=== PATIENT | male | born 1995 | race Caucasian/White ===

== ENCOUNTER 2017-10-14 09:18 | Emergency (ER) | payer MEDICAID ==
[2017-10-14 09:28] VITALS: O2SAT 96
--- NOTE | 2017-10-14 09:37 | EDPHY ---
H & P Stated Complaint: Cough, fever, body aches Time Seen by Provider: 10/14/17 09:37 HPI/ROS: HPI: This is a 22-year-old male who presents with Chief Complaint: Cough, fever, body aches Location: Body Quality: Aches Duration: 2 days Signs and Symptoms: + fever 102 orally F, + chills, + nausea, + nonproductive cough, + dull aching headache, no vomiting, no abdominal pain, no neck stiffness Timing: Gradual onset, worsening Severity: Moderate Context: Patient is homeless, has been at the nursing home for the last 3 days, presents with complaints of gradual onset of body aches and chills with sudden onset of fever today of 102 F orally accompanied by nonproductive cough, dull aching headache, nausea. Patient did not receive influenza vaccine this year. Denies vomiting/diarrhea/abdominal pain. Patient was born premature. + tobacco user. No history of lung disease. Denies hemoptysis/neck stiffness/shortness of breath/cough. Does not take any or any over the counter antipyretics. Modifying Factors: None Comment: ROS: see HPI Constitutional: + fever, + chills, no weight loss Eyes: No blurred vision Respiratory: No shortness of breath, + cough Cardiovascular: No chest pain Gastrointestinal: + nausea, no vomiting, no diarrhea Genitourinary: No dysuria Extremities: No myalgias Neurologic: No weakness, no numbness Skin: No rashes Hematologic: No bruising, no bleeding MEDICAL/SURGICAL/SOCIAL HISTORY: Medical history: Born premature. Generally healthy. Does not take any regular medications. Surgical history: Denies Social history: Homeless CONSTITUTIONAL: Young adult white male, appears ill but nontoxic in appearance , awake and alert, no obvious distress HEENT: Atraumatic and normocephalic, PERRL, EOMI. Tympanic membranes clear. Oropharynx clear, no exudate and moist pink mucosa. Airway patent. No lymphadenopathy. No meningismus. Cardiovascular: Normal S1/S2, mild tachycardia, regular rhythm, without murmur rub or gallop. PULMONARY/CHEST: Symmetrical and nontender. Clear to auscultation bilaterally. Good air movement. No accessory muscle usage. ABDOMEN: Soft, nondistended, nontender, no rebound, no guarding, no peritoneal signs, no masses or organomegaly. No CVAT. EXTREMITIES: 2/2 pulses, strength 5/5, no deformities, no clubbing, no cyanosis or edema. NEUROLOGICAL: no focal neuro deficits. GCS 15. SKIN: Warm and dry, no erythema. no rash. Good capillary refill. Source: Patient Exam Limitations: No limitations - Personal History Current Tetanus/Diphtheria Vaccine: Yes Current Tetanus Diphtheria and Acellular Pertussis (TDAP): Yes Tetanus Vaccine Date: 2010 - Medical/Surgical History Hx Asthma: No Hx Chronic Respiratory Disease: No Hx Diabetes: No Hx Cardiac Disease: No Hx Renal Disease: No Hx Cirrhosis: No Hx Alcoholism: No Hx HIV/AIDS: No Hx Splenectomy or Spleen Trauma: No Other PMH: Premature - Social History Smoking Status: Current every day smoker Constitutional: Initial Vital Signs Temperature (C) 38.2 C 10/14/17 09:18 Heart Rate 119 H 10/14/17 09:18 Respiratory Rate 18 10/14/17 09:18 Blood Pressure 113/74 10/14/17 09:18 O2 Sat (%) 96 10/14/17 09:18 O2 Delivery Mode Room Air Allergies/Adverse Reactions: aspirin Allergy (Verified 10/14/17 09:26) codeine Allergy (Verified 10/14/17 09:26) haloperidol [From Haldol] Allergy (Verified 10/14/17 09:26) lithium Allergy (Verified 10/14/17 09:26) methylphenidate [From Ritalin] Allergy (Verified 10/14/17 09:26) risperidone Allergy (Verified 10/14/17 09:26) sertraline [From Zoloft] Allergy (Verified 10/14/17 09:26) ziprasidone [From Geodon] Allergy (Verified 10/14/17 09:26) Home Medications: Medication Instructions Recorded Benzonatate [Tessalon Pearles (RX)] 100 mg PO Q6 PRN #12 cap 10/14/17 levOFLOXACIN [levAQUIN (*)] 750 mg PO DAILY #7 tab 10/14/17 Medical Decision Making - Diagnostics Imaging Results: Imaging Impressions Chest X-Ray 10/14/17 09:43 Impression: Left lower lobe pneumonia. Findings and recommendations discussed with emergency department physician speech correction assistant, Alicia Esteban PA-C at 1036 hours, October 14, 2017. Final report concurs with initial preliminary interpretation. ED Course/Re-evaluation: Blood culture, labs, IV fluids, IV medications, chest x-ray, influenza test ordered 1 L normal saline, albuterol inhaler and IV Toradol 30 mg upon arrival Influenza A positive. Chest x-ray my read shows left lower lobe opacity, no pneumothorax/effusion. Given IV Levaquin. No signs of hypoxia/wheezing/respiratory distress/sepsis. Appropriate to treat outpatient; prescription for Levaquin and Tessalon Perles and patient given albuterol inhaler to take home. vessel manager consult for medication assistance and primary care follow-up. Patient reports that he can return to the nursing home today and has transportation to the pharmacy tomorrow to fill his prescriptions. This patient was seen under the supervision of my secondary supervising physician. I evaluated care for this patient independently. Discussed this patient with Dr. Blackburn who did not see the patient. Patient's presentation, labs/imaging, treatment and plan of care were discussed with secondary supervising physician. Differential Diagnosis: Differential diagnosis includes but is not limited to pneumonia, upper respiratory infection, bronchitis, sepsis. - Data Points Laboratory Results: Laboratory Results 10/14/17 09:45 10/14/17 09:45 10/14/17 10/14/17 10/14/17 09:45 09:45 09:45 WBC 9.66 10^3/uL H 10^3/uL (3.80-9.50) RBC 5.19 10^6/uL 10^6/uL (4.40-6.38) Hgb 16.1 g/dL g/dL (13.7-17.5) Hct 46.2 % % (40.0-51.0) MCV 89.0 fL fL (81.5-99.8) MCH 31.0 pg pg (27.9-34.1) MCHC 34.8 g/dL g/dL (32.4-36.7) RDW 13.3 % % (11.5-15.2) Plt Count 288 10^3/uL 10^3/uL (150-400) MPV 9.5 fL fL (8.7-11.7) Neut % (Auto) 80.9 % H % (39.3-74.2) Lymph % (Auto) 6.3 % L % (15.0-45.0) [place] % (Auto) 12.3 % % (4.5-13.0) Eos % (Auto) 0.0 % L % (0.6-7.6) Baso % (Auto) 0.2 % L % (0.3-1.7) Nucleat RBC Rel Count 0.0 % % (0.0-0.2) Absolute Neuts (auto) 7.81 10^3/uL H 10^3/uL (1.70-6.50) Absolute Lymphs (auto) 0.61 10^3/uL L 10^3/uL (1.00-3.00) Absolute Monos (auto) 1.19 10^3/uL H 10^3/uL (0.30-0.80) Absolute Eos (auto) 0.00 10^3/uL L 10^3/uL (0.03-0.40) Absolute Basos (auto) 0.02 10^3/uL 10^3/uL (0.02-0.10) Absolute Nucleated RBC 0.00 10^3/uL 10^3/uL (0-0.01) Immature Gran % 0.3 % % (0.0-1.1) Immature Gran # 0.03 10^3/uL 10^3/uL (0.00-0.10) VBG Lactic Acid Sodium 139 mEq/L mEq/L (134-144) Potassium 4.4 mEq/L mEq/L (3.5-5.2) Chloride 102 mEq/L mEq/L (97-110) Carbon Dioxide 23 mEq/l mEq/l (22-31) Anion Gap 14 mEq/L mEq/L (8-16) BUN 13 mg/dL mg/dL (7-23) Creatinine 1.0 mg/dL mg/dL (0.7-1.3) Estimated GFR > 60 Glucose 98 mg/dL mg/dL (70-100) Calcium 9.8 mg/dL mg/dL (8.5-10.4) Nasal Influenza A PCR FLU A DETECTED (NEGATIVE) Nasal Influenza B PCR NEGATIVE FOR FLU B (NEGATIVE) 10/14/17 09:45 WBC RBC Hgb Hct MCV MCH MCHC RDW Plt Count MPV Neut % (Auto) Lymph % (Auto) [place] % (Auto) Eos % (Auto) Baso % (Auto) Nucleat RBC Rel Count Absolute Neuts (auto) Absolute Lymphs (auto) Absolute Monos (auto) Absolute Eos (auto) Absolute Basos (auto) Absolute Nucleated RBC Immature Gran % Immature Gran # VBG Lactic Acid 1.4 mmol/L mmol/L (0.7-2.1) Sodium Potassium Chloride Carbon Dioxide Anion Gap BUN Creatinine Estimated GFR Glucose Calcium Nasal Influenza A PCR Nasal Influenza B PCR Medications Given: Discontinued Medications Sodium Chloride (Ns) 1,000 mls @ 0 mls/hr IV EDNOW ONE; Wide Open PRN Reason: Protocol Stop: 10/14/17 09:43 Last Admin: 10/14/17 09:54 Dose: 1,000 mls Levofloxacin/Dextrose (Levaquin 750 Mg (Premix)) 150 mls @ 100 mls/hr IV EDNOW ONE PRN Reason: Protocol Stop: 10/14/17 12:07 Last Admin: 10/14/17 11:10 Dose: 150 mls Sodium Chloride (Ns) 1,000 mls @ 0 mls/hr IV EDNOW ONE; Wide Open PRN Reason: Protocol Stop: 10/14/17 10:52 Last Admin: 10/14/17 11:11 Dose: 1,000 mls Ketorolac Tromethamine (Toradol) 30 mg IVP EDNOW ONE Stop: 10/14/17 09:44 Last Admin: 10/14/17 09:55 Dose: 30 mg Departure - Departure Disposition: Home, Routine, Self-Care Clinical Impression: Community acquired pneumonia due to influenza A virus Condition: Good Instructions: Albuterol (By breathing), Levofloxacin (By mouth), Influenza (ED) , Community Acquired Pneumonia (ED) Referrals: [facility],. [Clinic] - As per Instructions Prescriptions: Benzonatate [Tessalon Pearles (RX)] 100 mg PO Q6 PRN #12 cap PRN Reason: Cough, Moderate levOFLOXACIN [levAQUIN (*)] 750 mg PO DAILY #7 tab
[2017-10-14] MEDS ORDERED: NS 1,000 ML IV ONE ×2 (09:42→10:51)
[2017-10-14] MEDS ORDERED: KETOROLAC 30 MG/1 ML SDV IVP ONE (09:43)
[2017-10-14 09:53] LABS: PLATELET COUNT 288 10^3/uL (150-400)
[2017-10-14] MEDS ORDERED: ALBUTEROL 60 PUFFS/8 GM MDI IH ONE (10:47)
[2017-10-14 12:10] VITALS: PULSE 103; RESP 16; TEMP 99.7
--- NOTE | 2017-10-14 12:18 | ASMTCMCOM ---
CM Note CM Note Notes: Met with patient regarding homeless resources. Patient is [facility] and is working with a field nurse case manager (Faizan) there. I have confirmed to location for the skilled nursing this evening, provided his prescribed dose of Levaquin through the [facility], and given patient a local bus pass to get back to the skilled nursing. We also discussed prevention of infection spread via face mask and frequent hand washing/sanitation. Date Signed: 10/14/2017 12:18 PM Electronically Signed By:Cristina Benito RN
[2017-10-14 12:37] VITALS: BP 108/55
== END 2017-10-14 13:00 | disposition home or self-care (01) ==
DX: J10.00 Influenza due to other identified influenza virus with unspecified type of pneumonia (principal); F17.200 Nicotine dependence, unspecified, uncomplicated; E86.9 Volume depletion, unspecified
CPT/HCPCS: 96365; J1885; J1956

== ENCOUNTER 2017-10-27 09:52 | Emergency (ER) | payer MEDICAID ==
[2017-10-27 10:08] VITALS: TEMP 98.4
--- NOTE | 2017-10-27 10:13 | EDPHY ---
H & P Stated Complaint: Feels SOB Time Seen by Provider: 10/27/17 10:12 Source: Patient Exam Limitations: No limitations - Personal History Current Tetanus/Diphtheria Vaccine: Yes Current Tetanus Diphtheria and Acellular Pertussis (TDAP): Yes Tetanus Vaccine Date: 2010 - Medical/Surgical History Hx Asthma: No Hx Chronic Respiratory Disease: No Hx Diabetes: No Hx Cardiac Disease: No Hx Renal Disease: No Hx Cirrhosis: No Hx Alcoholism: No Hx HIV/AIDS: No Hx Splenectomy or Spleen Trauma: No Other PMH: Premature - Social History Smoking Status: Current every day smoker Constitutional: Initial Vital Signs Temperature (C) 36.9 C 10/27/17 09:52 Heart Rate 83 10/27/17 09:52 Respiratory Rate 16 10/27/17 09:52 Blood Pressure 117/72 10/27/17 09:52 O2 Sat (%) 99 10/27/17 09:52 O2 Delivery Mode Room Air Allergies/Adverse Reactions: aspirin Allergy (Verified 10/14/17 09:26) codeine Allergy (Verified 10/14/17 09:26) haloperidol [From Haldol] Allergy (Verified 10/14/17 09:26) lithium Allergy (Verified 10/14/17 09:26) methylphenidate [From Ritalin] Allergy (Verified 10/14/17 09:26) risperidone Allergy (Verified 10/14/17 09:26) sertraline [From Zoloft] Allergy (Verified 10/14/17 09:26) ziprasidone [From Geodon] Allergy (Verified 10/14/17 09:26) Home Medications: Medication Instructions Recorded Benzonatate [Tessalon Pearles (RX)] 100 mg PO Q6 PRN #12 cap 10/14/17 levOFLOXACIN [levAQUIN (*)] 750 mg PO DAILY #7 tab 10/14/17 oxyCODONE IR [Oxycodone Ir (*)] 5 - 10 mg PO Q6 PRN #7 tab 10/27/17 predniSONE 40 mg PO DAILY #10 tab 10/27/17 Medical Decision Making ED Course/Re-evaluation: CHIEF COMPLAINT: Lung pain HISTORY OF PRESENT ILLNESS: Homeless 22-year-old who was unkept and on showered. He was here 2-2 and half weeks ago and diagnosed with a bronchitis or early pneumonia. He states the symptoms resolved but he is having constant pain in his lungs. The pain is always there and gets worse when he takes a deep breath. It is not in a specific area but in all of his lungs. He denies fevers or chills. Denies cough. Denies any other symptoms. REVIEW OF SYSTEMS: A 10 point review of systems was performed and is negative with the exception of the elements mentioned in the history of present illness. PHYSICAL EXAM: HR, BP, O2 Sat, RR. Temp noted General Appearance: Alert, well hydrated, appropriate, and non-toxic appearing. Head: Atraumatic without scalp tenderness or obvious injury Eyes: Pupils equal, round, reactive to light and accommodation, EOMI, no trauma , no injection. Ears: Clear bilaterally, no perforation, normal landmarks Nose: Atraumatic, no rhinorrhea, clear. Throat: There is no erythema or exudates, no lesions, normal tonsils, mucus membranes moist. Neck: Supple, 2+ carotid upstroke, nontender, no lymphadenopathy. Respiratory: No retractions, no distress, no wheezes, and no accessory muscle use. Lungs are clear to auscultation bilaterally. Cardiovascular: Regular rate and rhythm, no murmurs, rubs, or gallops. Bilateral carotid, radial, dorsalis pedis, and posterior tibial pulses intact. Good capillary refill all extremities. Gastrointestinal: Abdomen is soft, nontender, non-distended, no masses, no rebound, no guarding, no peritoneal signs. Musculoskeletal: Normal active ROM of all extremities, atraumatic. Neurological: Alert, appropriate, and interactive. The patient has normal DTRs and non-focal cranial nerves, motor, sensory, and cerebellar exam. Skin: No rashes, good turgor, no nodules on palpation. Past medical history: Noncontributory Past surgical history: Noncontributory Family history: Noncontributory Social history: Homeless, abuses street drugs and alcohol, single DIAGNOSTICS/PROCEDURES/CRITICAL CARE TIME: Study: PA and Lateral Chest X-ray shows bronchitis. Indication: Chest pain Results: After viewing the images myself on the PACS system. My interpretation of the images is: no acute process. The radiologist interpretation is pending at the time of this dictation. I have discussed the above x-rays with the radiologist. DIFFERENTIAL DIAGNOSIS: Includes not limited to: Pneumonitis, recurrent pneumonia, bronchitis, malingering, drug-seeking MEDICAL DECISION MAKING: This patient has no specific findings on clinical exam. Chest x-ray is pending. I will give this patient 60 of prednisone in case he has some post infectious reactive airways disease type of pain. Additionally, he will get a duo nebulizer treatment while we are waiting for the x-ray. Chest x-ray shows bronchitis, I will discharge the patient home with steroids to treat acute bronchitis. I have discussed these findings with the patient. He agrees with the plan and will be discharged home. - Data Points Medications Given: Discontinued Medications Albuterol/Ipratropium (Duoneb) 3 ml IH EDNOW ONE Stop: 10/27/17 10:48 Last Admin: 10/27/17 10:51 Dose: 3 ml Prednisone (Prednisone) 60 mg PO EDNOW ONE Stop: 10/27/17 10:48 Last Admin: 10/27/17 10:51 Dose: 60 mg Departure - Departure Disposition: Home, Routine, Self-Care Clinical Impression: Acute bronchitis Qualifiers: Bronchitis organism: unspecified organism Qualified Code(s): J20.9 - Acute bronchitis, unspecified Condition: Good Instructions: Acute Bronchitis (ED), Bronchospasm (ED) Additional Instructions: Take full course of Prednisone as directed. Take Oxycodone as directed for severe pain. You have been referred to [facility], follow up as needed. [facility] has walk-in appointments for the homeless at the following days/locations. No appointment is needed. Saturday 8-10 am @ [facility] 11 AM-1 PM @ [facility] Saturday 8-10:30 AM @ [facility] Saturday 8-10 AM @ [facility] 2-4 PM @ [facility] Saturday 8-10 AM @ [facility] Referrals: [facility],. [Clinic] - As per Instructions Prescriptions: oxyCODONE IR [Oxycodone Ir (*)] 5 - 10 mg PO Q6 PRN #7 tab PRN Reason: Pain, Severe predniSONE 40 mg PO DAILY #10 tab Report Scribed for: Pierre aRmos Report Scribed by: Katheryn Jim Date of Report: 10/27/17 Time of Report: 11:30
[2017-10-27] MEDS ORDERED: IPRATROPIUM/ALBUTEROL 3 ML DEYVIAL IH ONE (10:47)
[2017-10-27] MEDS ORDERED: predniSONE 20 MG TAB PO ONE (10:47)
[2017-10-27 11:03] VITALS: BP 108/65; PULSE 68; RESP 18; O2SAT 98
--- NOTE | 2017-10-27 12:17 | ASDISCHSUM ---
Discharge Information Plan Status:Homeless/[facility] Medically Cleared to Leave: Discharge Date:10/27/2017 11:33 AM CM D/C Disposition:[facility] (Homeless) ADT D/C Disposition:Home, Routine, Self-Care Projected Discharge Date:10/27/2017 11:33 AM Transportation at D/C:None or Unknown Discharge Delay Reason: Follow-Up Date:10/27/2017 11:33 AM Discharge Slot: Final Diagnosis: Placement Information Patient Contact Information Contact Name:MICA Relationship: Address: Home Phone: Work Phone: City: Alternate Phone: State/Zip Code: Email: Financial Information Financial Class: Primary Plan Desc:MEDICA[employer] [place] Primary Plan Number:[id number] Secondary Plan Desc: Secondary Plan Number: Assessment Information [facility] Progress Note CM Note CM Note Notes: Patient presented to the ED via EMS for pain related to coughing. Patient recently seen in the ED 10/14/17 and was diagnosed with pneumonia; pt states he took the provided medication from that visit but that he continues to have pain while coughing. Patient also mentioned he would like treatment for his body lice (pt unable to afford OTC lice medication). This CM planned on providing patient with prescription for Nix Permethrin 1% so he could get it filled and covered by his Medicaid; however, patient left before could provide this and additional [facility] info, and he also refused to sign his DC paperwork. Patient is currently staying at [facility] and has a leather case finisher, Faizan, through [facility]. Date Signed: 10/27/2017 12:16 PM Electronically Signed By:Mandy Dougherty RN LACE LACE Acuity / Level of Care Answers: No. Emergency dept visits in Answers: 2 last 6 months Score: 2 Date Signed: 10/27/2017 12:16 PM Electronically Signed By:Mandy Dougherty RN Intervention Information
== END 2017-10-27 11:33 | disposition home or self-care (01) ==
LOC: EDUNIT#
DX: J20.9 Acute bronchitis, unspecified (principal); F17.200 Nicotine dependence, unspecified, uncomplicated
CPT/HCPCS: J7512

== ENCOUNTER 2017-11-02 08:24 | Inpatient (IN) | payer MEDICAID ==
[2017-11-02] MEDS ORDERED: NS 1,000 ML IV ONE (08:28)
[2017-11-02 08:48] LABS: PLATELET COUNT 384 10^3/uL (150-400)
--- NOTE | 2017-11-02 08:58 | EDPHY ---
H & P Stated Complaint: coughing HPI/ROS: Chief complaint: Cold symptoms History of present illness: This is a 22-year-old male, currently homeless staying in a homeless long-term, who is brought to the emergency department by EMS for cold symptoms. He reports productive cough and trouble breathing. He states he has been sick throughout October. He was diagnosed with pneumonia and then Influenza A October. His pneumonia was treated with Levaquin on an outpatient basis. He states he feels like he has never fully recovered. He feels symptoms are worsening. He is constantly surrounded by other sick people. EMS provided him with a DuoNeb and 125 mg of Solu-Medrol. Review of systems: 10 point review of systems was obtained and other than described above was negative - Personal History Current Tetanus/Diphtheria Vaccine: Yes Current Tetanus Diphtheria and Acellular Pertussis (TDAP): Yes Tetanus Vaccine Date: 2010 - Medical/Surgical History Hx Asthma: No Hx Chronic Respiratory Disease: No Hx Diabetes: No Hx Cardiac Disease: No Hx Renal Disease: No Hx Cirrhosis: No Hx Alcoholism: No Hx HIV/AIDS: No Hx Splenectomy or Spleen Trauma: No Other PMH: Premature - Social History Smoking Status: Current every day smoker - Physical Exam Exam: General Appearance: Alert, nontoxic. Eyes: Pupils equal and round no pallor or injection. ENT, Mouth: Mucous membranes moist. Respiratory: Patient is talking in full sentences. No use of accessory muscles diffuse rhonchi. Rales in the right lower lung aviles noted. Cardiovascular: Regular rate and rhythm. Gastrointestinal: Abdomen is soft and non tender, no masses, bowel sounds normal. Neurological: Alert and oriented x4. Strength and sensation intact and symmetrical. No meningismus. Skin: Warm and dry, no rashes. Musculoskeletal: Neck is supple non tender. Extremities are symmetrical, full range of motion. Psychiatric: Patient is oriented X 3, there is no agitation. Constitutional: Initial Vital Signs Temperature (C) 36.8 C 11/02/17 08:27 Heart Rate 110 H 11/02/17 08:27 Respiratory Rate 20 11/02/17 08:27 Blood Pressure 116/76 11/02/17 08:27 O2 Sat (%) 92 11/02/17 08:27 O2 Delivery Mode Room Air Allergies/Adverse Reactions: aspirin Allergy (Verified 10/14/17 09:26) codeine Allergy (Verified 10/14/17 09:26) haloperidol [From Haldol] Allergy (Verified 10/14/17 09:26) lithium Allergy (Verified 10/14/17 09:26) methylphenidate [From Ritalin] Allergy (Verified 10/14/17 09:26) risperidone Allergy (Verified 10/14/17 09:26) sertraline [From Zoloft] Allergy (Verified 10/14/17 09:26) ziprasidone [From Geodon] Allergy (Verified 10/14/17 09:26) Home Medications: Medication Instructions Recorded Benzonatate [Tessalon Pearles (RX)] 100 mg PO Q6 PRN #12 cap 10/14/17 levOFLOXACIN [levAQUIN (*)] 750 mg PO DAILY #7 tab 10/14/17 oxyCODONE IR [Oxycodone Ir (*)] 5 - 10 mg PO Q6 PRN #7 tab 10/27/17 predniSONE 40 mg PO DAILY #10 tab 10/27/17 Medical Decision Making - Diagnostics Imaging Results: Imaging Impressions Chest X-Ray 11/02/17 08:28 Impression: 1. Findings consistent with airways disease are noted. Bilateral interstitial prominence may reflect viral pneumonitis. 2. Left basilar opacity, atelectasis versus pneumonia. Results called and discussed with BARRY Dawkins on 11/02/2017 at 9:36 Imaging: I viewed and interpreted images myself ED Course/Re-evaluation: Patient is discussed with my secondary supervising physician Dr. Geovani Blackburn. Patient presents for cold symptoms. He has had a episode of pneumonia treated with Levaquin as well as influenza A this month. I am concerned for a new pulmonary infection, virus versus possible left lower lobe pneumonia. Increasing white count from previous studies. He does not appear to be recovering well. He is not in a situation to recover well as he is homeless. I believe he warrants admission for further care. He is nontoxic. I will defer antibiotic therapy to the hospitalist service. The plan has been discussed with the patient who voiced understanding and agreement with it. Differential Diagnosis: Included but not limited to pneumonia, bronchitis, viral syndrome - Data Points Laboratory Results: Laboratory Results 11/02/17 08:33 11/02/17 08:33 11/02/17 11/02/17 11/02/17 09:00 08:33 08:33 WBC RBC Hgb Hct MCV MCH MCHC RDW Plt Count MPV Neut % (Auto) Lymph % (Auto) [place] % (Auto) Eos % (Auto) Baso % (Auto) Nucleat RBC Rel Count Absolute Neuts (auto) Absolute Lymphs (auto) Absolute Monos (auto) Absolute Eos (auto) Absolute Basos (auto) Absolute Nucleated RBC Immature Gran % Immature Gran # PT 13.9 SEC SEC (12.0-15.0) INR 1.05 (0.83-1.16) APTT 31.1 SEC SEC (23.0-38.0) VBG Lactic Acid 1.2 mmol/L mmol/L (0.7-2.1) Sodium 135 mEq/L mEq/L (135-145) Potassium 4.2 mEq/L mEq/L (3.5-5.2) Chloride 95 mEq/L L mEq/L (97-110) Carbon Dioxide 23 mEq/l mEq/l (22-31) Anion Gap 17 mEq/L H mEq/L (8-16) BUN 10 mg/dL mg/dL (7-23) Creatinine 0.8 mg/dL mg/dL (0.7-1.3) Estimated GFR > 60 Glucose 87 mg/dL mg/dL (70-100) Calcium 9.0 mg/dL mg/dL (8.5-10.4) Total Bilirubin 1.3 mg/dL mg/dL (0.1-1.4) 11/02/17 08:33 WBC 16.42 10^3/uL H 10^3/uL (3.80-9.50) RBC 4.71 10^6/uL 10^6/uL (4.40-6.38) Hgb 15.0 g/dL g/dL (13.7-17.5) Hct 40.7 % % (40.0-51.0) MCV 86.4 fL fL (81.5-99.8) MCH 31.8 pg pg (27.9-34.1) MCHC 36.9 g/dL H g/dL (32.4-36.7) RDW 12.7 % % (11.5-15.2) Plt Count 384 10^3/uL 10^3/uL (150-400) MPV 9.8 fL fL (8.7-11.7) Neut % (Auto) 71.7 % % (39.3-74.2) Lymph % (Auto) 11.2 % L % (15.0-45.0) [place] % (Auto) 15.6 % H % (4.5-13.0) Eos % (Auto) 0.1 % L % (0.6-7.6) Baso % (Auto) 0.2 % L % (0.3-1.7) Nucleat RBC Rel Count 0.0 % % (0.0-0.2) Absolute Neuts (auto) 11.76 10^3/uL H 10^3/uL (1.70-6.50) Absolute Lymphs (auto) 1.84 10^3/uL 10^3/uL (1.00-3.00) Absolute Monos (auto) 2.56 10^3/uL H 10^3/uL (0.30-0.80) Absolute Eos (auto) 0.02 10^3/uL L 10^3/uL (0.03-0.40) Absolute Basos (auto) 0.04 10^3/uL 10^3/uL (0.02-0.10) Absolute Nucleated RBC 0.00 10^3/uL 10^3/uL (0-0.01) Immature Gran % 1.2 % H % (0.0-1.1) Immature Gran # 0.20 10^3/uL H 10^3/uL (0.00-0.10) PT INR APTT VBG Lactic Acid Sodium Potassium Chloride Carbon Dioxide Anion Gap BUN Creatinine Estimated GFR Glucose Calcium Total Bilirubin Medications Given: Discontinued Medications Sodium Chloride (Ns) 1,000 mls @ 0 mls/hr IV ONCE ONE; Wide Open PRN Reason: Protocol Stop: 11/02/17 08:29 Last Admin: 11/02/17 08:47 Dose: 1,000 mls Departure - Departure Disposition: [facility] Acute Clinical Impression: Acute bronchitis Qualifiers: Bronchitis organism: unspecified organism Qualified Code(s): J20.9 - Acute bronchitis, unspecified Condition: Good
[2017-11-02 09:07] LABS: INR 1.05 (0.83-1.16); PROTIME(PATIENT) 13.9 SEC (12.0-15.0)
[2017-11-02] MEDS ORDERED: BENZONATATE 100 MG CAP PO PRN (11:56)
[2017-11-02] MEDS ORDERED: ONDANSETRON DISINTEGRATING 4 MG TAB PO PRN (11:57)
[2017-11-02] MEDS ORDERED: ONDANSETRON 4 MG/2 ML VIAL IVP PRN (11:57)
[2017-11-02] MEDS ORDERED: ACETAMINOPHEN 325 MG TAB PO PRN (11:57)
[2017-11-02] MEDS ORDERED: PERMETHRIN 5% 60 GM CREAM TP ONE ×2 (11:59→21:00)
[2017-11-02] MEDS ORDERED: NS W/ 20 KCl/L 1,000 ML IV SCH (12:00)
[2017-11-02] MEDS ORDERED: oxyCODONE IR 5 MG TAB PO PRN (12:03)
--- NOTE | 2017-11-02 12:13 | PDGENHP ---
History and Physical - Chief Complaint cough - History of Present Illness 22 yo homeless male admitted from the [facility] with concerns of pneumonia. Was seen in early October and treated with 7 days course of levaquin. Was seen on Oct 27 and continued to have symptoms and was given steroids that he was not able to fill. He says he really is about the same since early October. He has had tactile fever. He has a cough. He feels sick. BP is ok on RA no tachycardia no increased work of breathing pmhx: asthma tobacco abuse pshx: none soc: tobacco use, homeless fmhx: nc meds: none currently History Information - Allergies/Home Medication List Allergies/Adverse Reactions: aspirin Allergy (Verified 10/14/17 09:26) codeine Allergy (Verified 10/14/17 09:26) haloperidol [From Haldol] Allergy (Verified 10/14/17 09:26) lithium Allergy (Verified 10/14/17 09:26) methylphenidate [From Ritalin] Allergy (Verified 10/14/17 09:26) risperidone Allergy (Verified 10/14/17 09:26) sertraline [From Zoloft] Allergy (Verified 10/14/17 09:26) ziprasidone [From Geodon] Allergy (Verified 10/14/17 09:26) I have personally reviewed and updated: medical history, social history - Social History Smoking Status: Current every day smoker Review of Systems Review of Systems: ROS: 10pt was reviewed & negative except for what was stated in HPI & below Physical Exam Physical Exam: Temp Pulse Resp BP Pulse Ox 36.8 C 93 20 121/70 H 92 11/02/17 11:23 11/02/17 11:23 11/02/17 11:23 11/02/17 11:23 11/02/17 11:23 Constitutional: no apparent distress Eyes: PERRL, EOMI Ears, Nose, Mouth, Throat: moist mucous membranes Cardiovascular: regular rate and rhythym, No edema Respiratory: expiratory wheeze, other (coarse) Gastrointestinal: normoactive bowel sounds, soft, non-tender abdomen Skin: warm Musculoskeletal: full muscle strength Neurologic: AAOx3 Psychiatric: interacting appropriately, not anxious, not encephalopathic Lymph, Heme, Immunologic: No petechiae Lab Data & Imaging Review 11/02/17 08:33 11/02/17 08:33 WBC 16.42 10^3/uL (3.80-9.50) H 11/02/17 08:33 RBC 4.71 10^6/uL (4.40-6.38) 11/02/17 08:33 Hgb 15.0 g/dL (13.7-17.5) 11/02/17 08:33 Hct 40.7 % (40.0-51.0) 11/02/17 08:33 MCV 86.4 fL (81.5-99.8) 11/02/17 08:33 MCH 31.8 pg (27.9-34.1) 11/02/17 08:33 MCHC 36.9 g/dL (32.4-36.7) H 11/02/17 08:33 RDW 12.7 % (11.5-15.2) 11/02/17 08:33 Plt Count 384 10^3/uL (150-400) 11/02/17 08:33 MPV 9.8 fL (8.7-11.7) 11/02/17 08:33 Neut % (Auto) 71.7 % (39.3-74.2) 11/02/17 08:33 Lymph % (Auto) 11.2 % (15.0-45.0) L 11/02/17 08:33 [place] % (Auto) 15.6 % (4.5-13.0) H 11/02/17 08:33 Eos % (Auto) 0.1 % (0.6-7.6) L 11/02/17 08:33 Baso % (Auto) 0.2 % (0.3-1.7) L 11/02/17 08:33 Nucleat RBC Rel Count 0.0 % (0.0-0.2) 11/02/17 08:33 Absolute Neuts (auto) 11.76 10^3/uL (1.70-6.50) H 11/02/17 08:33 Absolute Lymphs (auto) 1.84 10^3/uL (1.00-3.00) 11/02/17 08:33 Absolute Monos (auto) 2.56 10^3/uL (0.30-0.80) H 11/02/17 08:33 Absolute Eos (auto) 0.02 10^3/uL (0.03-0.40) L 11/02/17 08:33 Absolute Basos (auto) 0.04 10^3/uL (0.02-0.10) 11/02/17 08:33 Absolute Nucleated RBC 0.00 10^3/uL (0-0.01) 11/02/17 08:33 Immature Gran % 1.2 % (0.0-1.1) H 11/02/17 08:33 Immature Gran # 0.20 10^3/uL (0.00-0.10) H 11/02/17 08:33 PT 13.9 SEC (12.0-15.0) 11/02/17 08:33 INR 1.05 (0.83-1.16) 11/02/17 08:33 APTT 31.1 SEC (23.0-38.0) 11/02/17 08:33 VBG Lactic Acid 1.2 mmol/L (0.7-2.1) 11/02/17 09:00 Sodium 135 mEq/L (135-145) 11/02/17 08:33 Potassium 4.2 mEq/L (3.5-5.2) 11/02/17 08:33 Chloride 95 mEq/L (97-110) L 11/02/17 08:33 Carbon Dioxide 23 mEq/l (22-31) 11/02/17 08:33 Anion Gap 17 mEq/L (8-16) H 11/02/17 08:33 BUN 10 mg/dL (7-23) 11/02/17 08:33 Creatinine 0.8 mg/dL (0.7-1.3) 11/02/17 08:33 Estimated GFR > 60 11/02/17 08:33 Glucose 87 mg/dL (70-100) 11/02/17 08:33 Calcium 9.0 mg/dL (8.5-10.4) 11/02/17 08:33 Total Bilirubin 1.3 mg/dL (0.1-1.4) 11/02/17 08:33 Assessment & Plan Assessment: CXR: bilateral pneumonia Leukocytosis bmp ok #CAP #Acute bronchitis #Lice Plan: Observation Rocephin, Azithromycin scheduled nebs steroids Permethrin early ambulation full code
[2017-11-02] MEDS: ALBUTEROL 3 ML DEYVIAL IH SCH ×3 (12:35→21:50)
[2017-11-02] MEDS: guaiFENesin 600 MG TAB.ER PO SCH ×2 (12:57→21:23)
[2017-11-02] MEDS: AZITHROMYCIN IV 500 MG in D5W 250 ML IV SCH (13:32)
[2017-11-02] MEDS: cefTRIAXone 1 GM in STERILE WATER INJ 10 ML IV SCH (13:32)
[2017-11-02] MEDS: predniSONE 20 MG TAB PO SCH (13:33)
[2017-11-03 05:08] LABS: PLATELET COUNT 386 10^3/uL (150-400)
[2017-11-03] MEDS: ALBUTEROL 3 ML DEYVIAL IH SCH ×4 (06:16→22:11)
[2017-11-03] MEDS: AZITHROMYCIN IV 500 MG in D5W 250 ML IV SCH (10:56)
[2017-11-03] MEDS: cefTRIAXone 1 GM in STERILE WATER INJ 10 ML IV SCH (10:57)
[2017-11-03] MEDS: predniSONE 20 MG TAB PO SCH (10:57)
[2017-11-03] MEDS: guaiFENesin 600 MG TAB.ER PO SCH ×2 (10:58→21:02)
--- NOTE | 2017-11-03 15:12 | HOSPPROG ---
Hospitalist Progress Note Assessment/Plan: #CAP #Acute bronchitis #Lice Plan: change to inpatient Rocephin, Azithromycin scheduled nebs cont steroids Permethrin early ambulation full code expect discharge tomorrow Subjective: still with leukocytosis. Afebrile. On RA. feels better. Lots of coughing. Still feels weak, not back to baseline. Feels unsafe for discharge. Objective: Vital Signs Temp Pulse Resp BP Pulse Ox 36.7 C 76 20 123/77 H 96 11/03/17 08:00 11/03/17 08:00 11/03/17 08:00 11/03/17 08:00 11/03/17 08:00 Microbiology 11/02/17 11:05 Respiratory Panel (PCR) - Final Nasal, Sinus - [place] Viral Transport No Organism Detected Laboratory Results 11/03/17 04:29 11/02/17 11/03/17 11/04/17 05:59 05:59 05:59 Intake Total 2455 Balance 2455 PT 13.9 SEC (12.0-15.0) 11/02/17 08:33 INR 1.05 (0.83-1.16) 11/02/17 08:33 - Physical Exam Constitutional: no apparent distress Eyes: PERRL Ears, Nose, Mouth, Throat: moist mucous membranes, hearing normal Cardiovascular: regular rate and rhythym, No edema Respiratory: expiratory wheeze, other (coars) Gastrointestinal: normoactive bowel sounds, soft, non-tender abdomen Skin: warm Musculoskeletal: full muscle strength Neurologic: AAOx3 Psychiatric: interacting appropriately, not anxious, not encephalopathic Lymph, Heme, Immunologic: No petechiae ICD10 Worksheet Patient Problems: Problems Problem Status Onset Acute bronchitis Acute
--- NOTE | 2017-11-03 15:33 | PDMN ---
Medical Necessity Medical necessity: C/M review: est. > 2 MN LOS for eval and TX of acute and persistent community acquired pneumonia, bronchitis, lice requiring topical Permethrin, ongoing IV Azithramycin, IV Ceftriaxone, IV fluids, scheduled Albuterol nebs, oral steroids, comorbid homelessness, tobacco use, history of asthma per 11/03/2017 Hospitalist progress note.
--- NOTE | 2017-11-03 15:36 | ASMTCMCOM ---
CM Note CM Note Notes: Met with patient after chart review and discussion with Dr. Masters. 22 year old homeless male with community acquired pneumonia He is tearful and tells me he has been homeless for 8 years. He has been in [place] since May. He tells me he is dialed into resources but needs help. He states he doesn't understand how to do things he should know how to do. He tells me he is connected with a place to get his GED. He is not interested in [facility] as they have a "tough" homeless community. 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 They only offer him a floor to sleep on. He admits to daily smoking of both tobacco and cannabis. He a a cell phone and is trying to reach out to places where he may stay as he is sure he will just get sick again if he is dcd' to the streets.. When I ask him if he is [facility] he smiles and states "yeah they know of me". He asks me to find him financial help to secure an apartment. [facility] the [facility]. He states he has a friend who is the mother of 2 and homeless as well. He also tells me the [employer] students don't see him. He admits he has anxiety and had a terrible childhood. I informed him that resources for housing down payment not likely and that he needs to follow up with [facility]. CM to follow. Likely dc tomorrow and will need appointment set up and possibly a bus pass and medications. Date Signed: 11/03/2017 03:36 PM Electronically Signed By:Luciana Osman RN
[2017-11-04 05:32] LABS: PLATELET COUNT 395 10^3/uL (150-400)
[2017-11-04] MEDS: ALBUTEROL 3 ML DEYVIAL IH SCH ×4 (06:00→19:37)
[2017-11-04] MEDS: cefTRIAXone 1 GM in STERILE WATER INJ 10 ML IV SCH (09:12)
[2017-11-04] MEDS: predniSONE 20 MG TAB PO SCH (09:17)
[2017-11-04] MEDS: guaiFENesin 600 MG TAB.ER PO SCH ×2 (09:17→21:00)
[2017-11-04] MEDS: AZITHROMYCIN IV 500 MG in D5W 250 ML IV SCH (09:18)
[2017-11-04] MEDS: AZITHROMYCIN 250 MG TAB PO SCH (10:58)
--- NOTE | 2017-11-04 11:00 | PDDCSUM ---
Discharge Summary Discharge Summary: DISCHARGE DIAGNOSES: -ongoing symptoms of Pneumonia requiring readmission suspect viral pneumonia with significant bronchitic component -scabies -[facility] HOSPITAL COURSE SUMMARY: This patient had onset of cough fevers and shortness of breath in early October. He has been symptomatic since then though his symptoms are very gradually improving. He has been to our ER twice previously with no improvement and is admitted at this time and treated with antibiotic along with steroids. Chest x-rays have consistently showed a mild diffuse interstitial component suggesting possibility of viral pneumonia though respiratory pathogen panel did not show a specific virus. Blood cultures have not shown any growth. There are no areas of consolidation typical of a bacterial pneumonia. He did have a low-grade fever on October 14 but has had no fevers since then that we have measured. There been no other complications of this illness. At present he is stable for discharge from the hospital. There is no fever. He is not hypoxemic and showing no signs of dyspnea or respiratory failure. He does have a cough which is productive. He is up ambulating with ease, eating well, and there are no signs of other complications. There is no wheezing on lung exam. It is felt to most likely has a viral pneumonitis, however as he has continuing symptoms and no specific findings to determine atypical bacterial versus viral pneumonia, will be treated with ongoing course of antibiotic along with steroid for his symptoms. The patient did have scabies at the time of this admission and was treated with permethrin and this appears to have been successful. PENDING TEST RESULTS: None MEDICATION CHANGES: He is prescribed 1 week of Keflex, 2 more days of azithromycin, the 5 days of prednisone 20 mg FOLLOW-UP PLAN: At [facility] in 1 week Greater than 35 minutes bedside and care coordination time today
--- NOTE | 2017-11-04 15:40 | ASMTCMCOM ---
CM Note CM Note Notes: Spoke with Dr. Jimenez about patient and the need for him to be 100% clear of lice to access any placement for him. We also discussed patient's medications and filling them here so he doesn't go without steroids or any other medicine he needs to make a full recovery. Awaiting Dr. Jimenez's instruction to finish D/C arrangements for patient. CM will follow. Date Signed: 11/04/2017 03:40 PM Electronically Signed By:Kelley Gil LCSW
--- NOTE | 2017-11-04 20:33 | HOSPPROG ---
Hospitalist Progress Note Assessment/Plan: DIAGNOSES: #CAP #Acute bronchitis #Lice #homelessness PLANS: -at this point will continue on his antibiotics and steroid -at this point we are unable to send him back to pen[facility] until we are certain the lipase are completely controlled; will review with Infectious Disease SUBJECTIVE: Patient at this point still having significant cough and feels somewhat weak and tired Less short of breath Complain to me of burning in his IV from his IV azithromycin which persisted after decreasing the dose OBJECTIVE Vitals reviewed: Stable without fever Quantitative Analyst, my review: Exam: alert oriented skin warm dry color ok resps not labored lungs clear BSs heart regular abd soft nondistended nontender, bowel sounds present limbs warm, no edema iv site ok Lab data: White blood cell count has decreased despite the significant steroid dose Objective: Vital Signs Temp Pulse Resp BP Pulse Ox 36.9 C 72 12 130/93 H 95 11/04/17 16:00 11/04/17 16:00 11/04/17 16:00 11/04/17 16:00 11/04/17 16:00 Laboratory Results 11/04/17 04:53 11/03/17 11/04/17 11/05/17 06:59 06:59 06:59 Intake Total 1480 480 Balance 1480 480 PT 13.9 SEC (12.0-15.0) 11/02/17 08:33 INR 1.05 (0.83-1.16) 11/02/17 08:33 ICD10 Worksheet Patient Problems: Problems Problem Status Onset Acute bronchitis Acute
[2017-11-04 22:59] VITALS: BP 117/68; PULSE 65; RESP 16; TEMP 98.5; O2SAT 96
[2017-11-05] MEDS: ALBUTEROL 3 ML DEYVIAL IH SCH (05:04)
[2017-11-05] MEDS ORDERED: ALBUTEROL 60 PUFFS/8 GM MDI IH PRN (08:32)
[2017-11-05] MEDS: predniSONE 20 MG TAB PO SCH (08:57)
[2017-11-05] MEDS: AZITHROMYCIN 250 MG TAB PO SCH (08:57)
[2017-11-05] MEDS: cefTRIAXone 1 GM in STERILE WATER INJ 10 ML IV SCH (08:57)
[2017-11-05] MEDS: guaiFENesin 600 MG TAB.ER PO SCH (08:57)
--- NOTE | 2017-11-05 12:07 | ASDISCHSUM ---
Discharge Information Plan Status:Home with No Needs Medically Cleared to Leave:11/04/2017 Discharge Date:11/05/2017 10:47 AM CM D/C Disposition: ADT D/C Disposition:Home, Routine, Self-Care Projected Discharge Date:11/05/2017 12:00 AM Transportation at D/C: Discharge Delay Reason: Follow-Up Date:11/05/2017 12:00 AM Discharge Slot: Final Diagnosis: Placement Information Patient Contact Information Contact Name:MICA Relationship: Address: Home Phone: Work Phone: City: Alternate Phone: State/[place] Code: Email: Financial Information Financial Class: Primary Plan Desc:[employer] [place] Primary Plan Number:[id number] Secondary Plan Desc: Secondary Plan Number: Assessment Information [facility] Progress Note CM Note CM Note Notes: Met with patient after chart review and discussion with Dr. Masters. 22 year old homeless male with community acquired pneumonia He is tearful and tells me he has been homeless for 8 years. He has been in [place] since May. He tells me he is dialed into resources but needs help. He states he doesn't understand how to do things he should know how to do. He tells me he is connected with a place to get his GED. He is not interested in [facility] as they have a "tough" homeless community. 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 They only offer him a floor to sleep on. He admits to daily smoking of both tobacco and cannabis. He a a cell phone and is trying to reach out to places where he may stay as he is sure he will just get sick again if he is dcd' to the streets.. When I ask him if he is [facility] he smiles and states "yeah they know of me". He asks me to find him financial help to secure an apartment. He is on the [facility]. He states he has a friend who is the mother of 2 and homeless as well. He also tells me the [employer] students don't see him. He admits he has anxiety and had a terrible childhood. I informed him that resources for housing down payment not likely and that he needs to follow up with [facility]. CM to follow. Likely dc tomorrow and will need appointment set up and possibly a bus pass and medications. Date Signed: 11/03/2017 03:36 PM Electronically Signed By:Luciana Osman RN [facility] CM Progress Note CM Note CM Note Notes: Spoke with Dr. Jimenez about patient and the need for him to be 100% clear of lice to access any placement for him. We also discussed patient's medications and filling them here so he doesn't go without steroids or any other medicine he needs to make a full recovery. Awaiting Dr. Jimenez's instruction to finish D/C arrangements for patient. CM will follow. Date Signed: 11/04/2017 03:40 PM Electronically Signed By:Kelley Gil LCSW Case Management Discharge Plan Note Case Management Discharge Discharge Order Complete? Answers: Yes Patient to Obtain Answers: Other Notes: MAP by hospital Medications Transportation Arranged Answers: Other Notes: Provided bus pass [facility] Complete Answers: No Case Management Transport Answers: No Form Complete Faxed Final Orders Answers: No Agency/Facility Transfer Answers: No Report Printed & Faxed to Receiving Agency Family Notified Answers: No Discharge Comments Notes: Pt is being discharged today. provided pt w/ a bus pass. [facility] also MAP pts prescriptions. Pt will return back to [facility]. CM available for changes. Plan: Independent Date Signed: 11/05/2017 10:09 AM Electronically Signed By:YONY Sarmiento Intervention Information
--- NOTE | 2017-11-05 19:50 | PDDCSUM ---
Discharge Summary Discharge Summary: DISCHARGE DIAGNOSES: -ongoing symptoms of Pneumonia requiring readmission suspect viral pneumonia with significant bronchitic component -scabies -[facility] HOSPITAL COURSE SUMMARY: This patient had onset of cough fevers and shortness of breath in early October. He has been symptomatic since then though his symptoms are very gradually improving. He has been to our ER twice previously with no improvement and is admitted at this time and treated with antibiotic along with steroids. Chest x-rays have consistently showed a mild diffuse interstitial component suggesting possibility of viral pneumonia though respiratory pathogen panel did not show a specific virus. Blood cultures have not shown any growth. There are no areas of consolidation typical of a bacterial pneumonia. He did have a low-grade fever on October 14 but has had no fevers since then that we have measured. There been no other complications of this illness. At present he is stable for discharge from the hospital. There is no fever. He is not hypoxemic and showing no signs of dyspnea or respiratory failure. He does have a cough which is productive. He is up ambulating with ease, eating well, and there are no signs of other complications. There is no wheezing on lung exam. It is felt to most likely has a viral pneumonitis, however as he has continuing symptoms and no specific findings to determine atypical bacterial versus viral pneumonia, will be treated with ongoing course of antibiotic along with steroid for his symptoms. The patient did have scabies at the time of this admission and was treated with permethrin and this appears to have been successful. PENDING TEST RESULTS: None MEDICATION CHANGES: He is prescribed 1 week of Keflex, 2 more days of azithromycin, the 5 days of prednisone 20 mg [facility] Greater than 35 minutes bedside and care coordination time today
== END 2017-11-05 10:47 | disposition home or self-care (01) | DRG 195 ==
LOC: EDUNIT# → F3E 11:14 → OBSVTOIN 11-03 15:10
PROVIDERS: ADMIT Family Medicine; ATTEND Family Medicine
DX: J12.9 Viral pneumonia, unspecified (principal); B86 Scabies; J45.909 Unspecified asthma, uncomplicated; Z59.0 Homelessness; Z72.0 Tobacco use
CPT/HCPCS: G0378; J0456; J0696; J7512; J7613

== ENCOUNTER 2018-01-15 14:19 | Emergency (ER) | payer MEDICAID ==
[2018-01-15 14:46] VITALS: BP 103/64; PULSE 76; RESP 16; TEMP 97.7; O2SAT 96
--- NOTE | 2018-01-15 16:09 | EDPHY ---
General Time Seen by Provider: 01/15/18 16:02 Narrative: CHIEF COMPLAINT: Left wrist pain, fall HISTORY OF PRESENT ILLNESS: Patient complains of left wrist pain this started this morning. Fell on the wrist yesterday around 8 or 9:00 a.m.. He was walking when fell on outward distress left arm. He broke his fall with his left arm completely. Did not strike his head or lose consciousness. No headache. No chest, back or abdominal pain or injury. Minimally painful last night. The pain is isolated to the left wrist his dominant wrist. Worse with palpation and movement. Difficulty uses fingers because the pain. No numbness. No tingling. No weakness. No wrist drop. No injury elsewhere. ESTABLISHED ORTHOPEDIST: None locally REVIEW OF SYSTEMS: Ten systems reviewed and are negative unless otherwise noted in the HPI PAST MEDICAL HISTORY: Denies any diagnoses but does have history of bipolar depression on his chart PAST SURGICAL HISTORY: No recent surgical history SOCIAL HISTORY: Smokes cigarettes. Occasional marijuana use. Currently lives in the residential FAMILY HISTORY: Noncontributory EXAMINATION General Appearance: Alert, no distress Cardiovascular: Symmetric radial pulses 2+. Brisk cap refill the fingers left hand. Neurological: A&O, 2 point sensation intact all fingers of the left hand. 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 No wrist drop on the left. Skin: Warm and dry, mild edema and erythema of the left posterior wrist. No cellulitis. No fluctuance. No petechiae or purpura. No laceration or puncture Extremities: Tenderness of the left wrist circumferential. There is no point tenderness of the snuffbox. No tenderness at the base of the thumb or over the phalanges of the left hand. There is no tenderness of the left elbow or shoulder. Range of motion of the wrist is difficult to test due to pain. Range of motion of the elbow symmetric. Psychiatric: Mood and affect normal DIFFERENTIAL DIAGNOSES: Including but not limited to fracture, sprain, strain, contusion MDM: 4:10 p.m. Acute left wrist sprain. X-ray was read as possible lucency in the triquetrum. This does not clinically correlate. He has no point tenderness over this location of the carpals. He has no point tenderness of the snuffbox. His pain is posterior are more over the distal radius and ulna. Given the wrist pain and difficulty using the wrist, he will be placed in a Velcro thumb spica. We discussed mandatory orthopedic follow-up. We discussed ice and elevation. We discussed anti-inflammatories. We discussed ED precautions. He is comfortable this plan and discharged home stable condition. SUPERVISION: This patient was independently evaluated without direct involvement of or examination by the attending physician. ED Precautions: Worsening pain. Erythema, edema, cyanosis, pallor, paresthesia or anesthesia. - Diagnostics Imaging Results: Imaging Impressions Wrist X-Ray 01/15/18 14:46 Impression: Equivocal fracture versus osseous superimposition artifact at the dorsal base of the triquetrum. Clinical correlation is suggested. Findings were discussed with MARI MASSEY MD at 15:22, on 01/15/2018. - History Smoking Status: Current every day smoker - Objective Vital Signs: Initial Vital Signs Temperature (C) 97.7 F 01/15/18 14:43 Heart Rate 76 01/15/18 14:43 Respiratory Rate 16 01/15/18 14:43 Blood Pressure 103/64 01/15/18 14:43 O2 Sat (%) 96 01/15/18 14:43 O2 Delivery Mode Room Air Allergies/Adverse Reactions: aspirin Allergy (Verified 01/15/18 14:42) codeine Allergy (Verified 01/15/18 14:42) haloperidol [From Haldol] Allergy (Verified 01/15/18 14:42) lithium Allergy (Verified 01/15/18 14:42) methylphenidate [From Ritalin] Allergy (Verified 01/15/18 14:42) risperidone Allergy (Verified 01/15/18 14:42) sertraline [From Zoloft] Allergy (Verified 01/15/18 14:42) ziprasidone [From Geodon] Allergy (Verified 01/15/18 14:42) Home Medications: Medication Instructions Recorded NK [No Known Home Meds] 01/15/18 Departure - Departure Disposition: Home, Routine, Self-Care Clinical Impression: Sprain of wrist, left Qualifiers: Encounter type: initial encounter Qualified Code(s): S63.502A - Unspecified sprain of left wrist, initial encounter Condition: Good Instructions: Wrist Sprain (ED) Additional Instructions: 1. Ice and elevation often 2. Wear the brace that we supplied to all times when ambulatory and weight- bearing 3. Recommend ibuprofen 400-600 mg every 6-8 hours as needed for pain and swelling 4. You will need to contact the on-call orthopedist we are provided for outpatient follow-up 5. I provided the on-call outpatient medicine physician as well as [facility] information should do wish to establish with [facility] primary care 6. ED precautions as discussed Referrals: Dalton Molina MD [Medical Doctor] - As per Instructions [facility],. [Clinic] - As per Instructions Pamela Woods MD [Medical Doctor] - As per Instructions Stand Alone Forms: Work Excuse
--- NOTE | 2018-01-15 17:04 | ASMTCMCOM ---
LILIANE Note LILIANE Note Notes: Chart reviewed, met with patient who has recently visited the ER with respiratory infections/influenza/potential viral PNA. Patient presents today with a left wrist injury which he sustained after tripping on an "uneven sidewalk" last night. Patient is alert, clear in thought and speech, clean and neat in appearance and clothing. He tells me he has been homeless since his 17th birthday. he is current with [facility], stays at their custodial location, and his supportive employment case manager at [employer] is [employer]. He denies drug use "other than marijuana that I get from a dispensary" He denies any street drug use "since September". He tells me that is when he last used Meth and he has "no intention" to do that again. Patient shares with me that he is not in contact with his parents, but that he does have siblings he talks with. He tells me that his mother used Meth when he was young and he was "curious" as to what that was about. We talked briefly about being open to ask for help if/when he finds himself "tempted" to use again. He verbalizes that he feels he would be comfortable doing so, but doesn't think that will be an issue. We briefly discussed his medication history ([place] noted in chart) and possible Bi polar history. Patient states that he prefers to not take any medications and he is NOT self medicating... "other than weed". Patient is current with [facility] and his supportive employment case manager is [employer]. 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 Patient is hoping to go back to school at some point. Date Signed: 01/15/2018 05:03 PM Electronically Signed By:Cristina Benito RN
--- NOTE | 2018-01-15 17:06 | ASMTCAGE ---
CAGE Do you feel you ought to Answers: No cut down on your drinking or drug use? Do people annoy you by Answers: No criticizing your drinking or drug use? Do you feel guilty about Answers: No your drinking or drug use? Do you drink or use drugs Answers: No first thing in the morning ([employer])? Additional Comments Patient denies alcohol use. He smokes "weed" that he gets from the dispensary. See CM note for further details Date Signed: 01/15/2018 05:05 PM Electronically Signed By:Cristina Benito RN
== END 2018-01-15 16:26 | disposition home or self-care (01) ==
DX: S63.502A Unspecified sprain of left wrist, initial encounter (principal); W01.0XXA Fall on same level from slipping, tripping and stumbling without subsequent striking against object, initial encounter; Y99.8 Other external cause status; Y93.01 Activity, walking, marching and hiking
CPT/HCPCS: L3908

== ENCOUNTER 2018-08-28 12:48 | Emergency (ER) | payer MEDICAID ==
[2018-08-28 12:56] VITALS: BP 113/66
[2018-08-28] MEDS ORDERED: ALBUTEROL 3 ML DEYVIAL IH ONE (14:21)
--- NOTE | 2018-08-28 14:21 | EDPHY ---
H & P Time Seen by Provider: 08/28/18 14:14 HPI/ROS: CLINICAL IMPRESSION: Bronchitis, rhinitis ASSESSMENT/PLAN: 23-year-old male presents to the emergency department with approximately 2 weeks of URI symptoms with progressively worsening cough. No hypoxia, respiratory distress, tachycardia, cyanosis, or audible wheezing or stridor. Chest x-ray reassuring with no clinical signs of pneumonia or acute cardiopulmonary disease. Patient received an albuterol neb with improvement in his cough. He is homeless and smokes regularly. Given these comorbidities and duration of his symptoms he will be treated with an antibiotic. Albuterol inhaler prescribed. PCP follow-up recommended, warning signs return to ED sooner outlined and discharge. DIFFERENTIAL DX: Differential includes but not limited to viral URI, viral bronchitis, pneumonia , acute reactive airway disease ED PROCEDURES: ED COURSE: 1437: Preliminary view of chest x-ray shows no evidence of acute pulmonary infiltrate or acute cardiopulmonary disease. Vital signs stable, no hypoxia CHIEF COMPLAINT: Cough, shortness of breath, sinus congestion HPI: 23-year-old male presents to the emergency department with 3 weeks of URI symptoms, cough and shortness of breath. Patient reports he was sent to the ED today by his employer. He has not been taking anything for his symptoms. He reports a past history of asthma that he does not regularly take medications for. He reports past history of pneumonia. No reported fevers or chills. He has homeless PMH: Remote history of asthma Pertinent Past Surgical History: Noncontributory Family History: Noncontributory Social History: Homeless, smoker ROS: A full 10 point review of systems was negative except for those mentioned in HPI. PHYSICAL EXAM: General Appearance: Alert, oriented, appropriate, cooperative, NAD, well hydrated, non-toxic appearing, VSS, no hypoxia. HEENT: TMs are clear bilaterally no perforation or FB, no injection, no evidence of serous or mucopurulent otitis. Oropharynx clear is no erythema or exudates, no tonsillar hypertrophy or asymmetry. Dentition without abnormality. Eyes: PERRLA, no acute vision change, nystagmus, swelling, discharge, pain or photosensitivity. Conjunctiva pink, no pallor or injection Neck: Supple, nontender, no lymphadenopathy, no midline pain, FROM, no meningismus. Respiratory: There are no retractions, diminished breath sounds throughout Cardiac: Regular rate and rhythm, no murmurs or gallops. Skin: Warm, dry, no rashes, no nodules on palpation. MDM: Patient was seen independently. Secondary supervising physician at time of evaluation was Dr. Cox. Diagnosis: Bronchitis. New, requires workup Summary: See Assessment and Plan for summary of ED visit Clinical lab tests: Not obtained. Independent visualization of images, tracing, or specimens: Yes. Patient Progress: Stable. Smoking Status: Current every day smoker Constitutional: Initial Vital Signs Temperature (C) 36.6 C 08/28/18 12:52 Heart Rate 95 08/28/18 12:52 Respiratory Rate 16 08/28/18 12:52 Blood Pressure 113/66 08/28/18 12:52 O2 Sat (%) 96 08/28/18 12:52 O2 Delivery Mode Room Air Allergies/Adverse Reactions: aspirin Allergy (Verified 01/15/18 14:42) codeine Allergy (Verified 01/15/18 14:42) haloperidol [From Haldol] Allergy (Verified 01/15/18 14:42) lithium Allergy (Verified 01/15/18 14:42) methylphenidate [From Ritalin] Allergy (Verified 01/15/18 14:42) risperidone Allergy (Verified 01/15/18 14:42) sertraline [From Zoloft] Allergy (Verified 01/15/18 14:42) ziprasidone [From Geodon] Allergy (Verified 01/15/18 14:42) Home Medications: Medication Instructions Recorded Albuterol Hfa Anes Only [Proair 2 puffs IH QID #1 mdi 08/28/18 Hfa Icu (*)] Azithromycin [Zithromax] 250 mg PO DAILY #6 tab 08/28/18 MDM/Departure - MDM Medications Given: Discontinued Medications Albuterol (Proventil Neb) 3 ml IH EDNOW ONE Stop: 08/28/18 14:22 Last Admin: 08/28/18 14:33 Dose: 3 ml - Depart Disposition: Home, Routine, Self-Care Clinical Impression: Bronchitis Condition: Good Instructions: Acute Bronchitis (ED) Additional Instructions: DISCHARGE INSTRUCTIONS FROM YOUR DOCTOR Thank you for visiting our emergency department today. Please keep in mind that discharge from the emergency department does not mean that there is nothing wrong - it simply means that we have not identified an emergency condition that requires further evaluation or treatment in the hospital. You should always plan to follow up with primary care for re-evaluation of your condition in the next 2-3 days. If you have been referred to a specialist, please call as soon as possible (today or tomorrow) to schedule your follow up appointment at the appropriate time. [ Your chest x-ray shows no sign of pneumonia. You likely have bronchitis. Most bronchitis is viral and can cause a persistent cough for many weeks. However, given that you are homeless, smokes cigarettes, and symptoms have been ongoing for 2 weeks, and antibiotic was prescribed. We also gave a prescription for albuterol inhaler with spacer that we recommend using every 4 hr for shortness of breath and cough. Please see a primary care doctor this week to recheck. A referral was given if you do not have 1. Please return to the emergency department sooner for worsening cough, shortness of breath, fever greater than 100.4, or any other concerns.] People present with illnesses and injuries in different ways, and it is always possible that we have missed something. You may always return for re-evaluation if symptoms worsen or if they are not improving or if you develop new/different symptoms. Again, thank you for choosing our emergency department. We hope that you feel better. Prescriptions: Albuterol Hfa Anes Only [Proair Hfa Icu (*)] 2 puffs IH QID #1 mdi Azithromycin [Zithromax] 250 mg PO DAILY #6 tab Referrals: NONE *PRIMARY CARE P,. [Primary Care Provider] - As per Instructions [facility],. [Clinic] - As per Instructions
== END 2018-08-28 14:59 | disposition home or self-care (01) ==
DX: J20.9 Acute bronchitis, unspecified (principal); J31.0 Chronic rhinitis; Z59.0 Homelessness; F17.200 Nicotine dependence, unspecified, uncomplicated
CPT/HCPCS: J7613

== ENCOUNTER 2018-09-10 11:42 | Emergency (ER) | payer MEDICAID ==
[2018-09-10] MEDS ORDERED: NS 1,000 ML IV ONE (12:20)
[2018-09-10] MEDS ORDERED: fentaNYL 100 MCG/2 ML INJ IVP ONE (12:20)
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
[2018-09-10 12:39] LABS: PLATELET COUNT 374 10^3/uL (150-400)
[2018-09-10] MEDS ORDERED: IOPAMIDOL (ISOVUE-300) 100 ML BTL ONE (13:01)
[2018-09-10] MEDS ORDERED: KETAMINE 200 MG/20 ML VIAL ONE (14:25)
[2018-09-10] MEDS ORDERED: PROPOFOL 200 MG/20 ML VIAL ONE (14:25)
[2018-09-10] MEDS ORDERED: KETAMINE 500 MG/10 ML VIAL IV ONE (14:39)
[2018-09-10] MEDS ORDERED: PROPOFOL 200 MG/20 ML VIAL IVP ONE (14:39)
[2018-09-10] MEDS ORDERED: FOLIC ACID 1 MG TAB PO ONE (14:47)
[2018-09-10] MEDS ORDERED: THIAMINE HCL 100 MG in NS 100 ML IV SCH (15:00)
[2018-09-10 16:44] VITALS: BP 115/87
== END 2018-09-10 16:44 | disposition home or self-care (01) ==
PROC: 0D9P3ZZ Drainage of Rectum, Percutaneous Approach (ICD-10-PCS; principal; 2018-09-10)
DX: K61.1 Rectal abscess (principal); F43.10 Post-traumatic stress disorder, unspecified
CPT/HCPCS: 96374; J2704; J3010; Q9967

== ENCOUNTER 2018-09-27 11:29 | Emergency (ER) | payer MEDICAID ==
[2018-09-27 11:48] VITALS: BP 112/71
--- NOTE | 2018-09-27 13:02 | EDPHY ---
H & P Stated Complaint: inj l shoulder at work Time Seen by Provider: 09/27/18 12:45 HPI/ROS: CHIEF COMPLAINT: Left shoulder pain HISTORY OF PRESENT ILLNESS: 23-year-old male presents with left shoulder pain. 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 While pushing, he developed sudden onset of moderate pain in the left shoulder. He now has pain with any movement of the left shoulder. ROS: No numbness, weakness, excessive bleeding, syncopal episode, other injury. 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 psych history. Pneumonia Oct 2017. - Social History Smoking Status: Current every day smoker - Physical Exam Exam: Alert and oriented, pleasant Extremities: Left shoulder-normal inspection, tenderness to any palpation of the suprascapular area and shoulder without localization, pain with range of motion Skin: Intact Neuro: Motor and sensory intact Vascular: Capillary refill brisk distally. Constitutional: Initial Vital Signs Temperature (C) 36.5 C 09/27/18 11:45 Heart Rate 78 09/27/18 11:45 Respiratory Rate 18 09/27/18 11:45 Blood Pressure 112/71 09/27/18 11:45 O2 Sat (%) 98 09/27/18 11:45 O2 Delivery Mode Room Air Allergies/Adverse Reactions: aspirin Allergy (Verified 09/27/18 11:44) codeine Allergy (Verified 09/27/18 11:44) diphenhydramine [From Benadryl] Allergy (Verified 09/27/18 11:44) haloperidol [From Haldol] Allergy (Verified 09/27/18 11:44) lithium Allergy (Verified 09/27/18 11:44) methylphenidate [From Ritalin] Allergy (Verified 09/27/18 11:44) risperidone Allergy (Verified 09/27/18 11:44) sertraline [From Zoloft] Allergy (Verified 09/27/18 11:44) ziprasidone [From Geodon] Allergy (Verified 09/27/18 11:44) Home Medications: Medication Instructions Recorded Albuterol Hfa Anes Only [Proair 2 puffs IH QID #1 mdi 08/28/18 Hfa Icu (*)] Medical Decision Making - Diagnostics Imaging Results: Imaging Impressions Shoulder X-Ray 09/27/18 11:59 Impression: Normal. Imaging: I viewed and interpreted images myself ED Course/Re-evaluation: This patient presents after a minor shoulder injury. X-ray is normal. Ibuprofen instructions given. Departure - Departure Disposition: Home, Routine, Self-Care Clinical Impression: Left shoulder strain Qualifiers: Encounter type: initial encounter Qualified Code(s): S46.912A - Strain of unspecified muscle, fascia and tendon at shoulder and upper arm level, left arm , initial encounter Condition: Good Instructions: Rotator Cuff Injury (ED) Additional Instructions: Ibuprofen 600 mg 3 times daily while the pain persists. Referrals: Mic Caicedo MD [Medical Doctor] - 5-7 days, if not improved
== END 2018-09-27 13:19 | disposition home or self-care (01) ==
DX: S46.912A Strain of unspecified muscle, fascia and tendon at shoulder and upper arm level, left arm, initial encounter (principal); X50.0XXA Overexertion from strenuous movement or load, initial encounter; Y93.F2 Activity, caregiving, lifting; Y99.0 Civilian activity done for income or pay

== ENCOUNTER 2018-12-18 21:37 | Inpatient (IN) | payer SELFPAY ==
[2018-12-18] MEDS ORDERED: LORazepam 2 MG/ML INJ IM PRN (23:36)
[2018-12-18] MEDS ORDERED: OLANZapine 10 MG/2 ML VIAL IM ONE ×2 (23:36→23:56)
[2018-12-18] MEDS ORDERED: OLANZapine DISINTEGR 10 MG TAB ONE (23:43)
[2018-12-18] MEDS ORDERED: OLANZapine 5 MG TAB PO ONE (23:44)
[2018-12-19 01:07] LABS: PLATELET COUNT 293 10^3/uL (150-400)
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
[2018-12-19] MEDS ORDERED: CEPHALEXIN 500 MG CAP PO ONE (06:19)
[2018-12-19] MEDS ORDERED: HALOPERIDOL LACT 5 MG/ML INJ ONE (07:38)
[2018-12-19] MEDS ORDERED: HALOPERIDOL LACT 5 MG/ML INJ IVP ONE (07:43)
[2018-12-19] MEDS ORDERED: LORazepam 2 MG/ML INJ IVP ONE (07:43)
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
--- NOTE | 2018-12-19 16:51 | ASMTTCLDSP ---
TLC Discharge Disposition Disposition: Answers: Admit Discharge Concerns/Recommendations: Notes: In consultation with [facility] Ed physician Pierre Ramos MD and tax credit leasing consultant [employer] MANAGER [employer], Solitario Hyatt, both concurred that the pt appears to meet 27-65 criteria requiring psychiatric hospitalization as pt appears to be at risk of harm to self/gravely disabled due to a metal illness. Pt declined to have the Patient Rights and responsibilities Statement read to him but chose to read and sign them independently. The original was paced in the chart and a copy was sent with his belongings. Pt was given the 3[facility] prohibited belongings list while in the ED. Was patient given the Answers: Yes Inpatient Behavioral Health Prohibited Belongings List while in the ED? For inpatient Solitario Hyatt admission, the following psychiatrist agreed to accept patient for admission to Behavioral Health ([facility]): Type of Hold: Answers: M1/72-hour Hold Hold initiated by: Answers: Police Date Signed: 12/19/2018 04:50 PM Electronically Signed By:Liya Baig LCSW
[2018-12-19] MEDS ORDERED: ACETAMINOPHEN 325 MG TAB PO PRN (18:48)
[2018-12-19] MEDS ORDERED: MAG HYDROX/AL HYDROX/SIMETH 30 ML UDCUP PO PRN (18:48)
[2018-12-19] MEDS ORDERED: MAGNESIUM HYDROXIDE 30 ML UDCUP PO PRN (18:48)
[2018-12-19] MEDS ORDERED: ALBUTEROL 60 PUFFS/8 GM MDI IH PRN (18:49)
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
[2018-12-20] MEDS: LORazepam 0.5 MG TAB PO PRN ×2 (09:12→17:34)
--- NOTE | 2018-12-20 10:06 | PDMN ---
Medical Necessity Medical [place] [facility] [id number] Schizophrenia Spectrum Disorders, Adult: Inpatient Care, 6 days: 23 yo w/ unspecified schizophrenia spectrum and other psychotic d/o, pt is gravely disabled and risk of harm to self and others, suicide attempt, on M1 hold. Admit IP status to BEH unit.
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
[2018-12-20] MEDS: NICOTINE POLACRILEX 2 MG GUM B PRN ×2 (15:41→18:31)
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
[2018-12-20] MEDS ORDERED: MELATONIN 3 MG TAB PO PRN (20:40)
[2018-12-21 06:36] VITALS: BP 101/53
[2018-12-21] MEDS: NICOTINE POLACRILEX 2 MG GUM B PRN (08:08)
[2018-12-21] MEDS: LORazepam 0.5 MG TAB PO PRN ×2 (08:08→14:05)
--- NOTE | 2018-12-21 12:29 | ASMTBHFAM ---
Notes Note: Notes: CC spoke briefly with pt's Aunt (AOC), Bushra ([phone]) AOC stated she is able to pick patient up after her work tonight. AOC stated she would "prefer to pick him up at 8:30pm". AOC stated pt. is going to be staying with her. AOC stated she works on Saturday, but will be with the pt all day Saturday and Saturday. [facility] reports working at [employer] in [place], but living in [place]. Date Signed: 12/21/2018 12:28 PM Electronically Signed By:Shelbi Cook
--- NOTE | 2018-12-21 14:29 | ASMTCMCOM ---
CM Note CM Note Notes: Pt. reports feeling "better than I was", adding the MD looked at his arm. PT. reports he "kept waking up" last night, adding this is normal for him. Pt. reports getting enough to eat, but it being "not very appitizing". Pt. reports the medications he received in the ED "messing with my stomach". PT. reports attending groups. Pt. reports being able to schedule his own follow up appointments. Pt. reports he is not currently taking any medications, other than Ativan as a PRN. Pt. stated he would like to continue taking the Ativan upon discharge. Pt. reports either his Aunt, Uber or a bus can take him home. Pt. reports he will be staying with his aunt in [place]. Pt. reports no concerns about discharging. Pt. requested information on how to care for his arm after discharge. Pt. denied SI, HI, AVH and paranoia. Pt. presents as alert, elevated, unkempt, fool breath, good eye contact, and cooperative. Staff report pt. sleeping 9.5 hours CC sent referral to [facility] yesterday, CC will contact P to have them follow up with pt. himself. CC provided referral to [facility] also. Date Signed: 12/21/2018 02:28 PM Electronically Signed By:Shelbi Cook
--- NOTE | 2018-12-21 16:56 | BDS ---
[f rep st] BEHAVIORAL HEALTH DISCHARGE SUMMARY REASON FOR ADMISSION: The patient is a 23-year-old unemployed, homeless man brought to the [facility] ED by EMS after intentionally cutting himself and claiming he was suicidal. He was placed on M1 hold by Rena GORDON. The Rena GORDON was called by his girlfriend who reported that she just had a fight with the patient and that they were thinking about breaking up. He told her that he would be better off and grabbed a knife and then cut his arm. When Rena GORDON arrived, the patient had significant bleeding. The girlfriend' s 4-year-old daughter was in the house. The police chief deputy placed the patient on an M1 and transported him to the [facility] ED. ADMITTING DIAGNOSIS: 1. Adjustment disorder, mixed disturbance of conduct and mood. 2. Substance induced mood disorder. 3. Cannabis use disorder, severe. 4. Lack of social support, difficulty in interpersonal relationships, recent break-up with his girlfriend. Currently unemployed. Recently fired from his job. Financial difficulties. No access to outpatient providers. ADMITTING PHYSICAL EXAMINATION: Done by Zohreh Rendon. She noted that the patient had recently made a self-inflicted laceration on his right upper arm. He received sutures in the ED. The only other chronic medical problem that he has is asthma. There are no other abnormal physical findings. ADMISSION LABS: White cell count was 11.41, hemoglobin 15.1, hematocrit 42.8, platelet count 293. Sodium 140, potassium 4.0, chloride 106, BUN 18, creatinine 0.8, glucose 98, calcium 9.7. Urine drug screen was positive for marijuana. HOSPITAL COURSE: The patient was admitted to the inpatient behavioral services unit on . His affect was irritable. His demeanor was appropriate. At times during the day, the patient was sullen, hostile and uncooperative, but when this MD met with the patient he was pleasant, calm, cooperative. He said please and thank you. He wanted to know what his discharge plan was. The MD talked to the patient about making a safety plan and identifying potential triggers and also identifying possible resources that he could use if he were to get into a crisis situation. The patient insisted that he only cut himself because "so many things piling up on me," and that he was feeling overwhelmed by stressors. His girlfriend wanted to break up with him and he recently got fired from his job. He was going to be homeless if he got kicked out of his girlfriend's apartment and he said that he was just not doing a very good job of planning for the future. He said that since he had been in the hospital, he had a chance to think about his situation. He was not feeling helpless or hopeless any longer. He was future oriented. He contacted his aunt and she had agreed to let him stay there. He also contacted the [facility] which provides outpatient treatment for young adults. He had stayed at the [facility] as a teenager and was familiar with their lining caser and with the group therapy that they provided. He said that he was interested in going back there and getting help. The patient also identified the [facility] where he had received primary care in the past. He said that he is aware that they have a psychologist and therapist on staff and that he would be willing to talk to them and possibly get connected with outpatient mental health providers. In the past, the patient has been on multiple medications for mood and psychosis, but he says that he only really becomes psychotic when he is using drugs. He says that he is not interested in taking medications. This MD spent quite a bit of time talking to the patient about the risks, benefits, and side effects of psychotropic medications. In the past, the patient has taken a number of mood stabilizers, including lithium as well as several antipsychotics, including Risperdal, olanzapine, Geodon. He is also taking an antidepressant, Zoloft. The patient says that in the past he never felt that these medications were very effective. He says that he never stayed on them for very long, that he was also noncompliant with treatment, would not show up for his appointments. He says that he did not enjoy taking psychotropic medications. He felt like that they made him too sedated and groggy and lowered his energy level. The patient states that he has always preferred to use marijuana. He says that when he takes marijuana, it makes him feel better. He feels calmer. MD pointed out that marijuana can often times cause severe psychotic symptoms which can make people more labile, that it can also increase mood swings, it can impair judgment, it can lower focus and concentration. It can decrease motivation and energy levels, things that the patient needs in order to be a responsible worker and keep a job, as well as interfering with the patient's ability to provide care for the 4-year-old daughter who was living with him and to provide adequate supervision for a young child. MD mentioned all of these risk factors to the patient. He acknowledged them and acknowledge verbal understanding of the MD's reservations about the patient using recreational drugs and mood altering substances like marijuana, alcohol and other drugs, but patient insisted that he did not have a psychiatric condition that required psychotropic medications. He says that in the past he has been diagnosed with anxiety, bipolar and schizophrenia, but he says that he does not believe those diagnoses are accurate as evidenced by the fact that he has gone long periods of times without taking psychotropic medications where he has not needed to be hospitalized or not experienced alla. MD pointed to the fact that the patient has had a history of cutting and self-harm behaviors. The patient says that he does not do those self-harm behaviors in order to , that he does not have a wish. He does not want to kill himself. He says that he does those things to relieve "pressure" when he is feeling overwhelmed usually by stressful situations in his life. MD encouraged the patient to consider other ways of managing his stress more effectively and less self-destructively. MD suggested that the patient might be better off talking with the field nurse case manager and with an individual psychotherapist through [facility]. The patient said he was open to that possibility. He said he would 1st meet with his primary care doctor at the [facility] and meet with a therapist that works at [facility], but that he was also open to having a referral made to [facility] where he could go and do a new intake and get established with care through them. The patient declined to start any psychotropic medications while he was in the hospital. During his stay in the hospital, he did not exhibit any signs of psychosis. He denied paranoid delusions, auditory and visual hallucinations, ideas of reference, bizarre thoughts. He did not have increase in goal- directed activity, decreased need for sleep, racing thoughts, pressured speech, grandiose delusions or elevated elated mood. He denied feeling sad, depressed, helpless, hopeless, worthless, anxious or having panic attacks. He denied having any thoughts, plans, or intents to hurt himself or anyone else. CONDITION AT DISCHARGE: The patient was stable. His affect was euthymic. He was appropriate. He was voicing no thoughts of suicide. He denied any psychotic symptoms and no symptoms of alla were present. He was compliant. He did participate in treatment, but declined to take any medications. DISCHARGE MEDICATIONS: The patient was discharged with an albuterol inhaler and with melatonin 3 mg p.o. at bedtime, 30 day supply, no refills. DISCHARGE DIAGNOSES: 1. Adjustment disorder, mixed disturbance of conduct and mood. 2. Substance-induced mood disorder. DISPOSITION: The patient had contacted his aunt who had agreed to let him stay with her. She agreed to supervise the patient and make sure he followed up with his outpatient appointment. She said that she would be willing to take him to [facility] for a new intake evaluation. The animal care assistant , since it was the weekend, called and left a message for [facility] to follow up with the patient for an intake. The patient stated that he would also follow up with [facility] and the [facility] as he was interested in doing some of their group therapy treatment that they offer for young adults. The patient was to be picked up by his aunt at 8:30 p.m. when she got off work. LEGAL COURSE: The patient was converted to voluntary status prior to the expiration of his M1 hold at time of discharge. /[id number]/MODL MTDD
== END 2018-12-21 16:27 | disposition home or self-care (01) | DRG 876 ==
LOC: BBEH 12-19 17:50
PROVIDERS: ADMIT Registered Nurse; ATTEND Registered Nurse
PROC: 0JQG0ZZ Repair Right Lower Arm Subcutaneous Tissue and Fascia, Open Approach (ICD-10-PCS; principal; 2018-12-19)
DX: F43.25 Adjustment disorder with mixed disturbance of emotions and conduct (principal); S51.811A Laceration without foreign body of right forearm, initial encounter; X78.1XXA Intentional self-harm by knife, initial encounter; Y92.009 Unspecified place in unspecified non-institutional (private) residence as the place of occurrence of the external cause; R45.851 Suicidal ideations; F12.988 Cannabis use, unspecified with other cannabis-induced disorder; J45.909 Unspecified asthma, uncomplicated; Z87.01 Personal history of pneumonia (recurrent); Z59.0 Homelessness; Z56.0 Unemployment, unspecified
CPT/HCPCS: 80307; 96374; G0480; J1200; J1630; J2060

== ENCOUNTER 2019-02-24 21:35 | Emergency (ER) | payer MEDICAID ==
--- NOTE | 2019-02-24 21:39 | EDPHY ---
H & P Time Seen by Provider: 02/24/19 21:37 HPI/ROS: CHIEF COMPLAINT: LSD abuse HISTORY OF PRESENT ILLNESS: Patient is a 23-year-old man who was using LSD about 3 hr ago. He states that this is more intense than usual. No pain or injury. He does not feel like harming himself. He called paramedics because his roommates were gone and he was afraid. Severity: Moderate Modifying factors: None REVIEW OF SYSTEMS: Constitutional: denies: chills, fever, recent illness, recent injury EENTM: denies: blurred vision, double vision, nose congestion Respiratory: denies: cough, shortness of breath Cardiac: denies: chest pain, irregular heart rate, lightheadedness, palpitations Gastrointestinal/Abdominal: denies: abdominal pain, diarrhea, nausea, vomiting, blood streaked stools Genitourinary: denies: dysuria, frequency, hematuria, pain Musculoskeletal: denies: joint pain, muscle pain Skin: denies: lesions, rash, jaundice, bruising Neurological: denies: headache, numbness, paresthesia, tingling, dizziness, weakness Hematologic/Lymphatic: denies: blood clots, easy bleeding, easy bruising Immunologic/allergic: denies: HIV/AIDS, transplant 10 systems reviewed and negative except as noted EXAM: GENERAL: no acute distress. HEAD: Atraumatic, normocephalic. EYES: Pupils equal round and reactive to light, extraocular movements intact, sclera anicteric, conjunctiva are normal. ENT: TMs normal, nares patent, oropharynx clear without exudates. Moist mucous membranes. NECK: Normal range of motion, supple without lymphadenopathy or JVD. LUNGS: Breath sounds clear to auscultation bilaterally and equal. No wheezes rales or rhonchi. HEART: Regular rate and rhythm without murmurs, rubs or gallops. ABDOMEN: Soft, nontender, normoactive bowel sounds. No guarding, no rebound. No masses appreciated. BACK: No CVA tenderness, no spinal tenderness, step-offs or deformities EXTREMITIES: Normal range of motion, no pitting or edema. No clubbing or cyanosis. NEUROLOGICAL: Cranial nerves II through XII grossly intact. Normal speech, normal gait. 5/5 strength, normal movement in all extremities, normal sensation , normal reflexes PSYCH: Answering questions appropriately, normal affect SKIN: Warm, dry, normal turgor, no visible rashes or lesions. 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 psych history. Pneumonia Oct 2017. - Family History Significant Family History: No pertinent family hx - Social History Smoking Status: Current every day smoker Alcohol Use: Occasionally Drug Use: Other Constitutional: Initial Vital Signs Temperature (C) 36.7 C 02/24/19 21:43 Heart Rate 131 H 02/24/19 21:43 Respiratory Rate 18 02/24/19 21:43 Blood Pressure 145/86 H 02/24/19 21:43 O2 Sat (%) 100 02/24/19 21:43 O2 Delivery Mode Room Air Allergies/Adverse Reactions: aspirin Allergy (Verified 02/24/19 21:51) codeine Allergy (Verified 02/24/19 21:51) diphenhydramine [From Benadryl] Allergy (Verified 02/24/19 21:51) haloperidol [From Haldol] Allergy (Verified 02/24/19 21:51) lithium Allergy (Verified 02/24/19 21:51) methylphenidate [From Ritalin] Allergy (Verified 02/24/19 21:51) risperidone Allergy (Verified 02/24/19 21:51) sertraline [From Zoloft] Allergy (Verified 02/24/19 21:51) ziprasidone [From Geodon] Allergy (Verified 02/24/19 21:51) Home Medications: Medication Instructions Recorded Albuterol [Proventil Inhaler HFA 2 puffs IH QID PRN #1 mdi 12/21/18 (*)] Melatonin [Melatonin 3 MG (*)] 3 mg PO HS PRN 30 Days tab 12/21/18 Medical Decision Making ED Course/Re-evaluation: Patient has no medical complaints. He is scared to be alone. [facility]. Differential Diagnosis: Partial list of the Differential diagnosis considered include but were not limited to; polysubstance abuse, head injury, intoxication and although unlikely based on the history and physical exam, I also considered infection, psychosis. 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 [Primary Care Provider] - As per Instructions [facility],. [Clinic] - As per Instructions
[2019-02-24 22:22] VITALS: BP 145/86
== END 2019-02-24 21:51 | disposition home or self-care (01) ==
LOC: EDUNIT#
DX: F16.10 Hallucinogen abuse, uncomplicated (principal); F17.200 Nicotine dependence, unspecified, uncomplicated